=== PATIENT | female | born 1950 | race Caucasian/White ===

== ENCOUNTER 2016-02-27 05:15 | Day surgery (SDC) ==
[2016-02-27] MEDS ORDERED: LR 1,000 ML ONE (05:33)
[2016-02-27] MEDS ORDERED: KEFZOL 1 GM/D5W 50 ML ONE (05:33)
[2016-02-27] MEDS ORDERED: REGLAN ONE (05:33)
[2016-02-27] MEDS ORDERED: PEPCID ONE (05:33)
[2016-02-27] MEDS ORDERED: MARCAINE 0.5% ONE (07:02)
[2016-02-27] MEDS ORDERED: PERCOCET-5 ONE (09:08)
[2016-02-27 09:20] VITALS: BP 127/84
--- NOTE | 2016-02-27 10:22 | OPERATIVE NOTE ---
PROCEDURE DATE: 02/27/2016 PREOPERATIVE DIAGNOSIS: Right hallux rigidus. POSTOPERATIVE DIAGNOSIS: Right hallux rigidus. PROCEDURE: Right 1st MTP joint condylectomy and OCD drilling. SURGEON: Dr. Leo Siu. BEAM DYER RECESSED VAT: IRENE Ng. ANESTHESIA: General with LMA. Tourniquet time was around 25 minutes. IMPLANTS: None. DISPOSITION: To PACU, hemodynamically stable. INDICATION FOR PROCEDURE: Ms. Nestor Martinez is a 65-year-old female who I have seen in clinic for evaluation of this right hallux rigidus. We tried nonoperative treatment and unfortunately, she did not really get much relief, so discussed with her about surgical intervention and she wanted to go ahead and proceed with that. DESCRIPTION OF PROCEDURE: Ms. Nestor Martinez was identified in the preop holding area. The right foot was marked as the correct surgical site. She was then wheeled to the operating room, placed supine on the operating table. All bony prominences well padded. She was induced under general anesthesia. LMA was placed. No tourniquet was placed to the thigh. Right lower extremity was then prepped with chlorhexidine, gluconate scrub, and then ChloraPrep, and draped in normal sterile fashion. Surgical pause was performed. We identified the correct patient, correct side, and the correct procedure. Preop antibiotics were given. Esmarch was used to exsanguinate the right lower extremity and Esmarch was used as the tourniquet at the level of the ankle. I started with a longitudinal incision over the 1st MTP joint. Dissection was carried down just medial to the EHL which was retracted laterally. I had made my capsulotomy dorsally. There was a fairly large loose body that was in the joint dorsally and so I removed that. Exposed my joint. Unfortunately, she did have full thickness cartilage loss, mainly on the dorsolateral aspect of the metatarsal head and also on the lateral aspect of the proximal phalanx base. I took a sagittal saw and performed my dorsal cheilectomy. Shaved off that whole area and then cleaned up the metatarsal head both medially and laterally and then shaved off that bone medially as well. So I felt I had really good resection overall. I then took off some of the osteophytes on the proximal phalanx base as well. After doing my cheilectomy resection I was able to get very good motion of the toe. We irrigated everything copiously with normal saline. I then took a drill with a 4, 5 K-wire and poked holes in that metatarsal head to try to encourage some fibrocartilage to grow in that area. We then irrigated again copiously with normal saline. I closed the capsule with 0 Vicryl, 2-0 Vicryl for the subcutaneous, and a running Monocryl on the skin. Adaptic, 4 x 4s, ABD, soft roll, and posterior splint was applied. Tourniquet was let down. The patient had good capillary refill return to the toes. Patient was then woke from general anesthesia, moved to her own bed, and taken to the PACU in stable condition, afebrile. Postoperatively the patient will be nonweightbearing right lower extremity for a week and I will see her in a week in clinic and we will go to a boot.
[2016-02-27] MEDS ORDERED: FENTANYL ONE (14:48)
[2016-02-27] MEDS ORDERED: DIPRIVAN 1% ONE (14:49)
[2016-02-27] MEDS ORDERED: XYLOCAINE-MPF 2% ONE (16:09)
== END 2016-02-27 09:45 | disposition home or self-care (01) ==
LOC: OPS 05:15
PROVIDERS: ATTEND Orthopaedic Surgery
DX: M20.21 Hallux rigidus, right foot (principal)
CPT/HCPCS: J0690; J3010; J7120; S0020